=== PATIENT | female | born 1945 ===

== ENCOUNTER 2021-02-04 19:36 | Observation (INO) | payer MEDICARE, OTHER ==
[~2021-02-04] VITALS: Ht 149.9 cm; Wt 73.0 kg
[2021-02-04 20:51] LABS: HEMOGLOBIN 7.3 gm/dl (12.3-15.3); RED BLOOD COUNT 2.4 M/UL (4.00-5.10); WHITE BLOOD COUNT 10.1 K/UL (4.5-11.0)
[2021-02-05] MEDS ORDERED: METOPROLOL TART50 MG PO (01:41)
[2021-02-05] MEDS ORDERED: PACERONE200 MG PO (01:42)
[2021-02-05] MEDS ORDERED: MOBIC7.5 MG PO (01:42)
[2021-02-05] MEDS ORDERED: OSTERA TABLET1 EACH PO (01:45)
[2021-02-05] MEDS ORDERED: SIMVASTATIN20 MG PO (01:46)
[2021-02-05] MEDS ORDERED: CLARITIN10 M2 PO (01:46)
[2021-02-05] MEDS ORDERED: OMEPRAZOLE20 MG PO (01:47)
[2021-02-05] MEDS ORDERED: HYZAAR 100-251 EACH PO (01:47)
[2021-02-05] MEDS ORDERED: WARFARIN SODIUM1 MG PO (01:51)
[2021-02-05] MEDS ORDERED: VENTOLIN HFA 66.7 GM INH (02:03)
[2021-02-05] MEDS ORDERED: LASIX TAB 20 MG20 MG PO (02:04)
[2021-02-05 04:43] LABS: RED BLOOD COUNT 2.62 M/UL (4.00-5.10)
[2021-02-05 05:05] LABS: BUN/CREATININE RATIO 23 (0-10)
--- NOTE | 2021-02-05 05:13 | NUR ---
CRITICAL K+ OF 3.[address] DAWSON; ORDER FOR K+ PROTOCAL PUT IN AND GIVEN
--- NOTE | 2021-02-05 11:53 | NUR ---
RN CONTACTED PHARMACY ABOUT PATIENT'S NEED FOR THICKENED LIQUIDS WELL A NEW ORDER FOR GO-LYTELY. PHARMACY EXPRESSED CONCERN ABOUT THE THICKENER INTERFERING WITH THE OSMOLALITY OF THE GO-LYTELY. RN NOTIFIED DR. SILVA WHO INSTRUCTED RN TO INSERT AN NG TUBE AND ADMINISTER MEDICATION THAT WAY. DR. MEDINA MADE AWARE.
[2021-02-06 03:34] LABS: HEMOGLOBIN 8.8 gm/dl (12.3-15.3); RED BLOOD COUNT 2.88 M/UL (4.00-5.10); WHITE BLOOD COUNT 8.9 K/UL (4.5-11.0)
[2021-02-06 07:54] LABS: BUN/CREATININE RATIO 17 (0-10)
--- NOTE | 2021-02-06 12:17 | NUR ---
1212- PATIENT BACK TO FLOOR FROM OR. VITAL SIGNS STABLE. NO DISTRESS NOTED.
== END 2021-02-06 15:52 | disposition home or self-care (01) ==
LOC: ER1 19:36 → MED SURG 4 22:44 → CDU 22:44 → MED SURG 4 02-05 00:44
PROVIDERS: Internal Medicine; Physician Assistant; ADMIT Internal Medicine
DX: D62 Acute posthemorrhagic anemia (principal); K57.31 Diverticulosis of large intestine without perforation or abscess with bleeding; I48.91 Unspecified atrial fibrillation; K64.0 First degree hemorrhoids; I86.4 Gastric varices; I11.0 Hypertensive heart disease with heart failure; E87.6 Hypokalemia; I50.30 Unspecified diastolic (congestive) heart failure; E78.5 Hyperlipidemia, unspecified; E03.9 Hypothyroidism, unspecified; K21.9 Gastro-esophageal reflux disease without esophagitis; Z88.2 Allergy status to sulfonamides; Z88.5 Allergy status to narcotic agent; Z88.7 Allergy status to serum and vaccine; Z91.030 Bee allergy status; Z79.899 Other long term (current) drug therapy; Z20.822 Contact with and (suspected) exposure to COVID-19
CPT/HCPCS: 36415; 36430; 74018; 80048; 80053; 82272; 83540; 83550; 83690; 83735; 84100; 84132; 85025; 85610; 85730; 86850; 86900; 86901; 86920; 96374; 96376; 99284; C9113; G0378; J2704; J7040; P9016; U0002